=== PATIENT | female | born 1950 | race Caucasian/White ===

== ENCOUNTER → 2019-04-10 | Day surgery (SDC) | payer OTHER ==
--- NOTE | 2019-04-11 10:28 | PATH ---
Surgical Pathology Report Patient Name: [facility]. Rec. #: [id number] /Age/Gender: 1950 (Age: 68) / F Account: [id number] Location: [facility] SURGICAL Taken: 04/10/2019 Received: 04/10/2019 Reported: 04/15/2019 Physicians: Kristi Riojas M.D. Specimen(s) Received A: BREAST, RIGHT, 11:00, ULTRASOUND GUIDED CORE BIOPSY B: BREAST, LEFT, 11:00, ULTRASOUND GUIDED CORE BIOPSY Clinical History Left palpable mass, right nonpalpable lesion Mammographic findings, ultrasound findings: Highly suspicious less malignant Final Diagnosis A. BREAST, RIGHT, 11:00, ULTRASOUND GUIDED CORE BIOPSY: INVASIVE DUCTAL CARCINOMA, WELL DIFFERENTIATED, WITH ASSOCIATED MICROCALCIFICATIONS MEASURING AT LEAST 1 CM IN THIS MATERIAL. DUCTAL CARCINOMA IN SITU (DCIS), LOW NUCLEAR GRADE, CRIBRIFORM TYPE, WITH ASSOCIATED MICROCALCIFICATIONS. B. BREAST, LEFT, 11:00, ULTRASOUND GUIDED CORE BIOPSY: INVASIVE DUCTAL CARCINOMA, MODERATELY DIFFERENTIATED, WITH ASSOCIATED MICROCALCIFICATIONS, MEASURING AT LEAST 1.3 CM IN THIS MATERIAL. Comment: Breast biomarkers pending, findings will be reported separately. Findings discussed with Dr. Moreno, 04/11/19. Electronically Signed Karen Paris M.D. Amendments Amended: 04/15/2019 Previous Signout Date: 04/11/2019 Addendum Reported: 04/15/2019 Addendum Diagnosis Part A, Right breast Breast Biomarker studies performed on block "A" at [facility] [employer] [place], [place] ([id number]) are as follows: ER (clone 6F11 mouse monoclonal antibody by [employer]): 100% nuclear staining with strong intensity (Positive). CO (clone16 mouse monoclonal antibody by [employer]): ~20% nuclear staining with strong intensity (Positive). Her2 IHC (EP3 from [employer], formerly known as [id number], using So Polymer Refine detection kit): 2+ (Equivocal). Ki-67: ~5% (Low proliferative index). Part B, Left breast Breast Biomarker studies performed on block "B" at [place], [place] ([id number]) are as follows: ER (clone 6F11 mouse monoclonal antibody by [employer]): 100% nuclear staining with strong intensity (Positive). CO (clone16 mouse monoclonal antibody by [employer]): ~70% nuclear staining with strong intensity (Positive). Her2 IHC (EP3 from [employer], formerly known as [id number], using So Polymer Refine detection kit): 2+ (Equivocal). Ki-67: ~20% (Moderate proliferative index). HER2 by FISH pending, and findings will be reported separately. Positive and negative controls (internal if applicable) show appropriate results. Formalin fixation and cold ischemic times are within current ASCO/CAP recommendations for ER, CO and Her2 testing. Karen Paris M.D. Addendum Reported: 04/19/2019 Addendum Diagnosis HER2 ANALYSIS BY FISH ([id number], [id number]) performed and interpreted at [facility] shows the following: Right Breast (Block A) INTERPRETATION: Negative for Her2 amplification Probe Average number of signals/nucleus Ratio Her2 2.6 1.3 CEP17 2.0 Left Breast (Block B) INTERPRETATION: Negative for Her2 amplification Probe Average number of signals/nucleus Ratio Her2 4.6 1.2 CEP17 3.9 See [facility] reports for additional details. Addendum Comment Karen Paris M.D. Gross Description A. Received in formalin labeled "right 11:00," are 8 hui-yellow, cylindrical portions of fibroadipose tissue ranging from 0.2-1.4 cm in length and averaging 0.1 cm in diameter. The specimens are submitted in toto in one cassette. B. Received in formalin labeled "left 11:00," are 4 hui-yellow, cylindrical portions of fibroadipose tissue ranging from 0.3-1.7 cm in length and averaging 0.1 cm in diameter. The specimens are submitted in toto in one cassette. Time to formalin fixation: Less than one minute Total formalin fixation time: Approximately 6 hours. 04/10/201904/10/2019
== END | disposition home or self-care (01) ==
LOC: JASU-SURG 11:43
PROVIDERS: ATTEND Surgery Surgical Oncology
PROC: 0HBV3ZX Excision of Bilateral Breast, Percutaneous Approach, Diagnostic (ICD-10-PCS; principal; 2019-04-10)
DX: C50.411 Malignant neoplasm of upper-outer quadrant of right female breast (principal); C50.212 Malignant neoplasm of upper-inner quadrant of left female breast; Z17.0 Estrogen receptor positive status [ER+]
CPT/HCPCS: 19083; 19084; 77066-TC; 87899; A4648